=== PATIENT | female | born 1995 | race African-American/Black ===

== ENCOUNTER 2019-09-30 12:03 | Emergency (ER) | payer MEDICAID ==
[~2019-09-30] VITALS: Ht 167.6 cm; Wt 76.0 kg
[2019-09-30 12:10] VITALS: BP 129/91
== END 2019-09-30 12:41 | disposition left against medical advice (07) ==
LOC: ER 12:03
DX: R51 Headache (principal); Z53.21 Procedure and treatment not carried out due to patient leaving prior to being seen by health care provider